=== PATIENT | female | born 2000 | race Hispanic/Latino ===

== ENCOUNTER 2024-04-05 15:42 | Emergency (ER) | payer SELFPAY ==
[~2024-04-05] VITALS: Ht 162.6 cm; Wt 53.5 kg
[2024-04-05 16:57] LABS: APPEARANCE,URINE CLOUDY (CLEAR); BILIRUBIN,URINE NEGATIVE (NEGATIVE); COLOR,URINE YELLOW (YELLOW); GLUCOSE, URINE (UA) NEGATIVE (NEGATIVE); KETONES,URINE 60 mg/dL (NEGATIVE); LEUKOCYTE ESTERASE ,URINE 500 Leu/uL (NEGATIVE); NITRATE,URINE NEGATIVE (NEGATIVE); PH,URINE 5.5 (5.0-8.0); PROTEIN,URINE 50 mg/dL (NEGATIVE)
[2024-04-05 16:58] VITALS: BP 138/95; PULSE 80; RESP 16; TEMP 98.4; O2SAT 98
[2024-04-05 16:58] LABS: ADD UA MICROSCOPIC YES
[2024-04-05 16:59] LABS: HCG,QUALITATIVE URINE NEGATIVE (NEGATIVE)
[2024-04-05 17:01] LABS: BACTERIA,URINE FEW /HPF (None Seen); MUCUS,URINE FEW LPF (None Seen); SQUAMOUS EPITHELIAL CELL,UR FEW /HPF (0-2); WBC,URINE >100 /HPF (0-1)
[2024-04-05] MEDS ORDERED: NITR100C4 PO (17:25)
[2024-04-05] MEDS: cefTRIAXone 1G VIAL IV ONE (17:25)
[2024-04-05] MEDS ORDERED: TOLN28CR6 TP (17:28)
--- NOTE | 2024-04-05 17:29 | ERN ---
ED Note History of Present Illness Stated Complaint: EXTREME VAGINAL DISCOMFORT X 2MO, RED/SWOLLEN FEET Chief Complaint: Vaginal Problems/Bleeding Time Seen by MD: 15:44 Time Seen by Midlevel: 15:44 Dictation: The patient is a 23-year-old female with no past medical history who presents to the emergency department with vaginal discomfort onset two months ago. Patient reports urinary frequency and the sensation to urinate. Patient denies any fevers, nausea vomiting diarrhea, hematuria, vaginal discharge. Patient also reports that the source of her feet had some redness today. Denies any trauma or walking barefooted. Home Meds Active Scripts Tolnaftate (Tolnaftate) 1 % Cream..g., 1 APPL TP BID for 14 Days, #30 GM 0 Refills Prov:CAMACHO MONROELEN [facility] 04/05/24 Nitrofurantoin Monohyd/M-Cryst (Macrobid 100 mg Capsule) 100 Mg Capsule, 1 CAP PO BID for 5 Days, #10 CAP 0 Refills Prov:AMOS MONROE [facility] 04/05/24 Past Medical History Past Medical History: No Pertinent History Surgical History: None RN Note Reviewed/Agreed w/PFSH: Yes Review of System Dictation Constitutional: Negative for fever,chills, and weight loss Eyes: Negative for injury, pain,redness, and discharge ENT: Negative for injury,pain or swelling Cardiovascular: Negative for chest pain, palpitations, and edema Respiratory: Negative for shortness of breath, cough, and wheezing, Abdomen/GI: Negative for abdominal pain, nausea, vomiting, diarrhea, and constipation Back: Negative for injury and pain : Negative for injury, bleeding and discharge positive for vaginal discomfort, urinary frequency MS/Extremity: Negative for injury and deformity Skin: Negative for rash, and discoloration Neuro: Negative for headache, weakness, numbness, tingling, and seizure Psych: Negative for suicide ideation, homicidal ideation, and hallucinations Initial Vital Sign VS Vital Signs Date Time Temp Pulse Resp B/P (MAP) Pulse Ox O2 Delivery O2 Flow Rate FiO2 04/05/24 15:53 98.4 82 20 138/96 98 Room Air 0 04/05/24 16:58 21 Physical Exam Dictation Vital Signs reviewed General Appearance: Alert, oriented x 3, no acute distress, well developed, nourished. Head and Face: non-traumatic. Eyes: PERRL, pink conjunctivas, eyelid no trauma, anterior chamber with arcus senilis. Ears: Pinnas intact and no signs of trauma or erythema ear canals clear and no discharge TM no erythema Nose: No discharge, no bleeding. Oropharynx: Mouth normal, tongue pink. pharynx clear,no erythema, tonsils no exudates, no abscesses noted, mucous membrane moist Neck: Supple, non-tender, no thyromegaly, no masses, no JVD, no bruits Breast:Deferred Chest:No tenderness, no crepitus, no paradoxical movement, no retractions Lungs:Clear, well-ventilated, symmetric, no rales, no wheezing, no rhonchi, no stridor, good breath sounds bilaterally Heart: Regular rate, regular rhythm, no murmur, no gallops Vascular: no peripheral edema, Abdomen: Soft, positive bowel sounds, nondistended, no guarding, nontender, no rebound, no masses no hepatomegaly, no splenomegaly, no Avelar's sign, no hernias. Rectal: Deferred Genital: No ulceration to external or internal canal, no drainage, no vaginal bleeding Neurological: Normal speech, motor function intact, sensory function intact Musculoskeletal: Neck nontender, full range of motion, back nontender, full range of motion, Extremities: nontender, full range of motion Skin: Color pink, dry, no turgor, no rash, no lacerations, no abrasions, no contusions. Lymphatic: Deferred Results (Laboratory/Radiology) Laboratory/Radiology Labs Reviewed?: Yes ED Course ED Course Medical Decision Making MDM The patient is a 23-year-old female with no past medical history who presents to the emergency department with vaginal discomfort onset two months ago. Patient reports urinary frequency and the sensation to urinate. Patient denies any fevers, nausea vomiting diarrhea, hematuria, vaginal discharge. Patient also reports that the source of her feet had some redness today. Denies any trauma or walking barefooted. Urinalysis positive for leukocyte esterase. Patient will be treated with a antibiotics for UTI. Patient no acute distress instructed to follow up with PCP. Differential diagnosis: UTI, herpes simplex, STI, cellulitis Need for hospitalization: Patient does not meet criteria for hospitalization. There are no social concerns with this patient. DX & DISP Disposition: Discharge Departure Impression: Primary Impression: UTI (urinary tract infection) Additional Impression: Athletes foot Condition: Stable Scripts Tolnaftate (Tolnaftate) 1 % Cream..g. 1 APPL TP BID for 14 Days, #30 GM 0 Refills Prov: AMOS MONROE [facility] 04/05/24 Nitrofurantoin Monohyd/M-Cryst (Macrobid 100 mg Capsule) 100 Mg Capsule 1 CAP PO BID for 5 Days, #10 CAP 0 Refills Prov: AMOS MONROE [facility] 04/05/24 Additional Instructions: Please follow up with OBGYN as soon as possible. Follow up with the primary doctor to your may antibiotics as prescribed. If symptoms worsen please return to ER FOLLOW-UP WITH PRIMARY CARE PROVIDER IN 1 TO 2 DAYS. TAKE MEDICATIONS DIRECTED HERE IN THE EMERGENCY ROOM. OKAY TO CONTINUE HOME MEDICATIONS UNLESS OTHERWISE DISCUSSED DURING YOUR VISIT IN THE EMERGENCY ROOM TODAY. RETURN TO YOUR NEAREST EMERGENCY ROOM IF SYMPTOMS WORSEN OR IF THERE IS NO IMPROVEMENT. CALL 911 IF YOU NEED IMMEDIATE ASSISTANCE. TAKE TYLENOL OR MOTRIN [id number] NEEDED AND IF NO CONTRAINDICATIONS ARE PRESENT. INCREASE ORAL HYDRATION. A WOUND CULTURE OR URINE CULTURE WAS ORDERED HERE IN THE EMERGENCY ROOM DEPARTMENT PLEASE FOLLOW-UP WITH PRIMARY CARE PROVIDER AND ADVISE THEM TO GET REPEAT PORTS FROM OUR FACILITY. IF YOU HAD ANY MARLENI WRAP/SPLINTS THAT WERE APPLIED HERE, PLEASE DO NOT REMOVE THEM UNTIL YOU SEE YOUR PRIMARY CARE OR SPECIALTY. Referrals: GINNA BOTELLO MD (PCP) Time of Disposition: 17:23 I have reviewed the case, and I agree with, Diagnosis and Plan ATTESTATION BY PHYSICIAN I PERFORMED THE SUBSTANTIVE PORTION OF THE VISIT. I HAVE REVIEWED AND PERSONALLY MADE AND APPROVED THE MANAGEMENT PLAN THAT IS DOCUMENTED IN THE NOTE BY MYSELF FOR THE A PP. I ACKNOWLEDGED FOR RESPONSIBILITY FOR THE PATIENT'S MANAGEMENT PLAN. AMOS MONROE Apr 05, 2024 17:29 ROCIO STEIN MD Apr 09, 2024 20:11
== END 2024-04-05 17:40 | disposition home or self-care (01) ==
LOC: EDH 15:42
DX: N39.0 Urinary tract infection, site not specified (principal); B35.3 Tinea pedis
CPT/HCPCS: 99283; 96374; 87086 ×2; 87186; 81001; 81025; J0696